=== PATIENT | male | born 1955 | race Two or more races ===

== ENCOUNTER 2019-03-31 06:20 | Day surgery (SDC) | payer OTHER | END 2019-03-31 11:30 | disposition home or self-care (01) | LOC: AMB-ENDOS 06:20 | DX: D12.4 Benign neoplasm of descending colon (principal) ==

== ENCOUNTER 2019-04-07 15:27 | Inpatient (IN) | payer OTHER ==
[~2019-04-07] VITALS: Ht 167.6 cm; Wt 66.7 kg
[2019-04-28] MEDS ORDERED: FOLIC A PO (10:34)
[2019-04-28] MEDS ORDERED: LOSARTAN PO (10:34)
[2019-04-28] MEDS ORDERED: COZAAR100 MG PO (11:43)
[2019-05-04] MEDS ORDERED: FOLIC ACID0.4 MG (08:01)
[2019-05-08] MEDS ORDERED: LOSARTAN POTAS100 MG PO (08:03)
[2019-05-08] MEDS ORDERED: OXYC1TAB9 PO (08:03)
[2019-05-08] MEDS ORDERED: INTESTINEX680 M1 PO (08:03)
[2019-05-08] MEDS ORDERED: IMODIUM A-D2 MG PO (08:04)
== END 2019-05-08 09:33 | disposition home or self-care (01) | DRG 331 ==
LOC: SURG 04-28 08:15 → O/R 05-04 07:22 → SURG 05-04 08:15 → SURH 05-04 16:36
PROVIDERS: ADMIT Surgery
PROC: 0D1B4Z4 Bypass Ileum to Cutaneous, Percutaneous Endoscopic Approach (ICD-10-PCS; 2019-05-04)
PROC: 07TC4ZZ Resection of Pelvis Lymphatic, Percutaneous Endoscopic Approach (ICD-10-PCS; 2019-05-04)
PROC: 0DJD8ZZ Inspection of Lower Intestinal Tract, Via Natural or Artificial Opening Endoscopic (ICD-10-PCS; 2019-05-04)
PROC: 0DTG4ZZ Resection of Left Large Intestine, Percutaneous Endoscopic Approach (ICD-10-PCS; principal; 2019-05-04 07:00)
DX: C19 Malignant neoplasm of rectosigmoid junction (principal); D12.4 Benign neoplasm of descending colon; D37.4 Neoplasm of uncertain behavior of colon; R93.5 Abnormal findings on diagnostic imaging of other abdominal regions, including retroperitoneum; R59.0 Localized enlarged lymph nodes; I10 Essential (primary) hypertension; K57.30 Diverticulosis of large intestine without perforation or abscess without bleeding

== ENCOUNTER 2019-08-05 10:32 | Inpatient (IN) | payer OTHER ==
[~2019-08-05] VITALS: Ht 167.6 cm; Wt 68.0 kg
[~2019-08-05 10:32] MED LIST: COZAAR100 MG PO; FOLIC A PO; FOLIC ACID0.4 MG; IMODIUM A-D2 MG PO; INTESTINEX680 M1 PO; LOSARTAN PO; LOSARTAN POTAS100 MG PO; OXYC1TAB9 PO
[2019-08-18] MEDS ORDERED: COZAAR50 MG PO (09:34)
[2019-08-27] MEDS ORDERED: OXYC1TAB9 PO (11:38)
[2019-08-27] MEDS ORDERED: HYOSCYAMINE0.125 M1 SL (11:38)
[2019-08-27] MEDS ORDERED: INTESTINEX680 M1 PO (11:38)
== END 2019-08-27 14:07 | disposition home or self-care (01) | DRG 330 ==
LOC: ADM 08-17 09:30 → EDSTATUS 08-18 09:15 → O/R 08-24 07:00 → SURH 08-24 09:15
PROVIDERS: ADMIT Surgery
PROC: 0DQB4ZZ Repair Ileum, Percutaneous Endoscopic Approach (ICD-10-PCS; principal; 2019-08-24 10:45)
DX: Z43.2 Encounter for attention to ileostomy (principal); C20 Malignant neoplasm of rectum; I10 Essential (primary) hypertension

== ENCOUNTER 2023-02-28 07:41 | Day surgery (SDC) | payer OTHER ==
[~2023-02-28 07:41] MED LIST changes: +COZAAR50 MG PO; +HYOSCYAMINE0.125 M1 SL
[2023-02-28] MEDS ORDERED: MIRALAX17 GM PO (11:43)
[2023-02-28] MEDS ORDERED: KETO10TA2 PO (11:43)
[2023-02-28] MEDS ORDERED: TYLENOL ARTHRI650 MG PO (11:43)
[2023-02-28] MEDS ORDERED: TRAMADOL HCL50 MG PO (13:20)
== END 2023-02-28 16:15 | disposition home or self-care (01) ==
LOC: CIR.AMB 07:41
PROVIDERS: ATTEND Surgery
DX: K43.0 Incisional hernia with obstruction, without gangrene (principal); K42.9 Umbilical hernia without obstruction or gangrene; I10 Essential (primary) hypertension; Z20.822 Contact with and (suspected) exposure to COVID-19